=== PATIENT | female | born 1975 | race Two or more races ===

== ENCOUNTER → 2024-11-16 | Outpatient (CLI) | payer OTHER, SELFPAY ==
--- NOTE | 2024-11-16 15:00 | XR_ITS ---
Examination: Abdomen sonogram, Limited Date and time of exam: November 16, 2024, 1438 hours INDICATIONS: Abdominal pain and nausea beginning 3 months ago Technique: Real-time cedeno scale transabdominal sonographic images of the upper abdomen obtained. Findings: Contracted gallbladder, gallbladder wall is thickened 0.5 cm Common bile duct 0.5 cm Pancreas obscured by bowel gas Liver 18.4 cm lobular contour no focal liver lesions Normal hepatopetal portal venous flow Patent IVC IMPRESSION: Recommend repeating the gallbladder portion of the study with fasting
== END | disposition home or self-care (01) ==
PROVIDERS: PCP Family Medicine; Referring Provider Specialist; Visit Provider Specialist
DX: R14.0 Abdominal distension (gaseous) (principal); R10.32 Left lower quadrant pain
CPT/HCPCS: 76705

== ENCOUNTER → 2024-11-16 | Outpatient (CLI) | payer OTHER, SELFPAY ==
--- NOTE | 2024-11-16 | XR_ITS ---
Examination: Abdomen AP single view Technique: AP portable supine abdomen, single view Exam date and time: November 16, 2024, 0719 hours INDICATIONS: Upper right and left quadrant abdominal pain beginning 3 months ago FINDINGS: Mild to moderate stool throughout the colon Diffuse increased density throughout the abdomen No free air No obstruction Mild to moderate bilateral hip osteoarthritis IMPRESSION: Nonobstructive bowel gas pattern. Mild diffuse increased density throughout the abdomen If ascites is a clinical consideration, suggest abdominal sonography follow-up
[2024-11-16 08:20] LABS: Collection Type, Urine Clean Catch
[2024-11-16 08:55] LABS: Basophils # (Auto) 0.1 Thou/mm3 (0.0-0.2); Basophils % (Auto) 1 % (0-2.5); Eosinophils # (Auto) 0.3 Thou/mm3 (0.0-0.5); Eosinophils % (Auto) 3 % (0-10); Hematocrit 41.3 % (36.0-46.0); Hemoglobin 12.8 g/dL (12.0-16.0); Immature Granulocytes Auto 0.05 Thou/mm3 (0.00-0.00); Lymphocytes # (Auto) 2.3 Thou/mm3 (1.0-4.8); Lymphocytes % (Auto) 23 % (10-50); Mean Corpuscular HGB Conc 31.0 g/dl (31.0-37.0); Mean Corpuscular Hemoglobin 26.9 pg (25.0-35.0); Mean Corpuscular Volume 87 fL (80-100); Monocytes # (Auto) 0.5 Thou/mm3 (0.0-0.8); Monocytes % (Auto) 5 % (0-12); Neutrophils # (Auto) 6.9 Thou/mm3 (1.8-7.7); Neutrophils % (Auto) 68 % (37-80); Nucleated Red Blood Cell # 0.00 Thou/mm3 (0.00-0.00); Nucleated Red Blood Cell % 0 /100 WBC (0); Platelet Count 294 Thou/mm3 (140-440); RDW Standard Deviation 45.1 fL (36.4-46.3); Red Blood Count 4.76 Miln/mm3 (4.00-5.20); White Blood Count 10.2 Thou/mm3 (3.6-11.0)
[2024-11-16 09:01] LABS: Bacteria,Urine Rare; Bilirubin,Urine Negative (Negative); Blood,Urine 1+ (Negative); Clarity,Urine Clear (Clear/Hazy); Color,Urine Lt-Yellow (Lt Yel-Yel); Glucose, Urine Negative (Negative); Ketones,Urine Negative (Negative); Leukocyte Esterase,Urine Negative (Negative); Nitrite,Urine Negative (Negative); PH,Urine 6.0 (5.0-7.0); Protein,Urine Negative (Neg - Trace); RBC,Urine 5 /hpf (0-3); Specific Gravity,Urine 1.023 (1.001-1.035); Squamous Epithelial Cell,Urine 4 /hpf (0-5); Urobilinogen,Urine Negative mg/dL (0.0-1.0); WBC,Urine 2 /hpf (0-5)
[2024-11-16 09:08] LABS: Alanine Aminotransferase 14 U/L (10-49); Albumin, Serum 4.4 gm/dL (3.5-5.0); Albumin/Globulin Ratio 1.6 (1.2-2.2); Alkaline Phosphatase 103 U/L (46-116); Amylase 31 U/L (30-118); Anion Gap 12 (7-16); Aspartate Amino Transferase 19 U/L (0-34); BUN/Creatinine Ratio 14 Ratio (12-20); Bilirubin,Total 0.2 mg/dL (0.3-1.2); Blood Urea Nitrogen 13 mg/dL (9-23); Calcium 9.0 mg/dL (8.3-10.6); Calcium (Corrected) 9.0 mg/dL (8.5-10.1); Carbon Dioxide 27.5 mMol/L (20.0-31.0); Chloride 107 mMol/L (98-107); Creatinine (Component) 0.9 mg/dL (0.6-1.3); Globulin 2.8 gm/dL (2.3-3.5); Glucose 103 mg/dL (74-106); Lipase 38 U/L (12-53); Osmolality,Calculated 290 (275-295); Potassium 4.2 mMol/L (3.4-5.1); Sodium 146 mMol/L (136-145); Total Protein 7.2 gm/dL (5.7-8.2); eGFR > 60 See Note
== END | disposition home or self-care (01) ==
PROVIDERS: PCP Family Medicine; Referring Provider Specialist; Visit Provider Specialist
DX: R14.0 Abdominal distension (gaseous) (principal); R10.32 Left lower quadrant pain; R10.31 Right lower quadrant pain; I10 Essential (primary) hypertension
CPT/HCPCS: 36415; 74018; 80053; 81001; 82150; 83690; 85025

== ENCOUNTER 2024-11-22 08:28 | Outpatient (RCR) | payer OTHER, SELFPAY ==
--- NOTE | 2024-11-22 09:00 | XR_ITS ---
Examination: STEFANA, hepatobiliary radioisotope scan Gallbladder ejection fraction study. Date and time of exam: November 22, 2024, 1628 hours INDICATIONS: Sharp upper abdominal pain 3 months Technique: 6.0 mCi of 99M Hepatolite administered. Serial imaging then obtained from immediate through 60 minutes. 2.5 mcg selective catheter Kinevac administered for gallbladder ejection fraction study. Findings: Radioisotope activity within the liver is reasonably homogenous. Gallbladder, common bile duct small bowel activity noted Impression: Gallbladder activity Normal gallbladder ejection fraction 91% Normal study
== END 2024-11-27 23:59 | disposition home or self-care (01) ==
LOC: SNUC 08:28
PROVIDERS: PCP Family Medicine; Referring Provider Specialist; Visit Provider Specialist
DX: R10.9 Unspecified abdominal pain (principal); R10.30 Lower abdominal pain, unspecified; R11.2 Nausea with vomiting, unspecified
CPT/HCPCS: 78227; A9537; J2805

== ENCOUNTER → 2024-11-28 | Outpatient (CLI) | payer OTHER, SELFPAY ==
--- NOTE | 2024-11-28 07:15 | XR_ITS ---
Examination: Abdomen sonogram, Limited Date and time of exam: November 28, 2024, 0724 hours INDICATIONS: Abdominal pain and nausea beginning 3 months ago Technique: Real-time cedeno scale transabdominal sonographic images of the upper abdomen obtained. Findings: Normal gallbladder Normal common bile duct 0.3 cm Pancreatic head 3.3 cm Liver 19.2 cm fatty infiltration lobular contour Normal hepatopetal portal venous flow Patent IVC IMPRESSION: Normal gallbladder Moderate hepatomegaly, suspect primary hepatocellular disease
== END | disposition home or self-care (01) ==
LOC: CDIM 07:04
PROVIDERS: PCP Family Medicine; Referring Provider Specialist; Visit Provider Specialist
DX: R16.0 Hepatomegaly, not elsewhere classified (principal)
CPT/HCPCS: 76705

== ENCOUNTER 2024-12-26 09:40 | Day surgery (SDC) | payer OTHER, SELFPAY ==
[2024-12-25 14:17] VITALS: BMI 43.8
[2024-12-26] VITALS (9 sets, daily range): BP systolic 121–154; BP diastolic 76–97; PULSE 79–85; RESP 16–22; TEMP 36.3–36.4; O2SAT 93–97; BMI 44.4
[2024-12-26] MEDS: SODIUM CHLORIDE 0.9% 500 ML 500 ML 20 ML IV (10:28)
[2024-12-26] MEDS: BENZOCAINE 20% (Hurricaine) SPRAY 1 DOSE TOP (10:28)
[2024-12-26] MEDS: ONDANSETRON INJ 2 MG/ML INJ 2 ML 4 MG IVP (10:29)
[2024-12-26] MEDS: fentaNYL CIT INJ 50 mCg/ML AMP 2ML (ASD USE ONLY) IVP (10:30)
[2024-12-26] MEDS: MIDAZOLAM INJ 1 MG/ML VIAL 2 ML (ASD USE ONLY) 2 MG IVP (10:30)
[2024-12-26 10:49] LABS: Misc Send Out* See Sep Rpt
== END 2024-12-26 11:40 | disposition home or self-care (01) ==
LOC: SASD 11:52
PROVIDERS: PCP Nurse Practitioner Family; Referring Provider Specialist; Visit Provider Specialist
PROC: (CPT 43239; principal; 2024-12-26 12:00)
DX: K20.90 Esophagitis, unspecified without bleeding (principal); K64.8 Other hemorrhoids; K57.30 Diverticulosis of large intestine without perforation or abscess without bleeding; E11.9 Type 2 diabetes mellitus without complications; I10 Essential (primary) hypertension; Z79.899 Other long term (current) drug therapy; K29.50 Unspecified chronic gastritis without bleeding; K31.A11 Gastric intestinal metaplasia without dysplasia, involving the antrum
CPT/HCPCS: 43239; 81025; A4649; J1200; J2250; J2405; J3010; J7999; A9270